=== PATIENT | female | born 1950 ===

== ENCOUNTER 2019-06-11 08:10 | Outpatient (CLI) | payer MEDICARE, OTHER ==
[2019-06-11 08:25] LABS: Anion Gap 17 mmol/L (10-20); BUN (Urea Nitrogen) 17 mg/dL (9.8-20.1); Calc. Creatinine Clearance 0 mL/min (70-130); Calcium 9.3 mg/dL (7.8-10.44); Carbon Dioxide 23 mmol/L (23-31); Chloride 103 mmol/L (98-107); Estimated GFR-MDRD 73; Glucose 113 mg/dL (80-115); Potassium 3.6 mmol/L (3.5-5.1); Sodium 139 mmol/L (136-145)
== END 2019-06-11 08:11 | disposition home or self-care (01) ==
LOC: NAV LABSP 08:10
PROVIDERS: ATTEND Student in an Organized Health Care Education/Training Program
DX: R41.82 Altered mental status, unspecified (principal)
CPT/HCPCS: 36415; 80048; 82140